=== PATIENT | male | born 1995 | race Caucasian/White ===

== ENCOUNTER 2016-11-08 11:56 | Emergency (ER) | payer OTHER ==
[~2016-11-08 11:56] MED LIST: AMBILIFY; ANUSOL-HC CREAM30 G1 EXT; ANUSOL-HC SUPP25 M1 PR; COLACE PO; DOXYCYCLINE150 MG PO; FLEXERIL10 M1 PO; HYDROCODON-ACE1 EAC7 PO; IBUPROFEN800 MG PO; MOBIC PO; MUCINEX100 MG/5 M PO; NAPROXEN PO; NO MEDICATIONS; ORUDIS75 M1 PO; TRILEPTAL PO; TYLENOL #3 PO
== END 2016-11-08 12:24 | disposition home or self-care (01) ==
LOC: SED 11:56
DX: L03.116 Cellulitis of left lower limb (principal); F31.9 Bipolar disorder, unspecified; F17.210 Nicotine dependence, cigarettes, uncomplicated
CPT/HCPCS: 99282

== ENCOUNTER 2016-11-14 10:52 | Emergency (ER) | payer OTHER ==
[2016-11-14] MEDS ORDERED: KEFLEX (10:59)
== END 2016-11-14 11:14 | disposition home or self-care (01) ==
LOC: SED 10:52
DX: Z48.00 Encounter for change or removal of nonsurgical wound dressing (principal); F90.9 Attention-deficit hyperactivity disorder, unspecified type; F17.200 Nicotine dependence, unspecified, uncomplicated
CPT/HCPCS: 99281